=== PATIENT | female | born 1975 | race African-American/Black ===

== ENCOUNTER 2016-09-24 12:28 | Emergency (ER) | payer SELFPAY ==
[2016-09-24 12:35] VITALS: BP 131/91
--- NOTE | 2016-09-24 13:08 | ER Document Report ---
Addendum entered and electronically signed by CARMELITA KARIMI NP 09/24/16 13:19 : Course - Re-evaluation Re-evalutation: 09/24/16 13:19 pt wants to leave, pt signed form per pt access staff, pt declines speaking with any additional staff - Vital Signs Vital signs: Temp Pulse Resp BP Pulse Ox 98.2 F 100 14 131/91 H 97 09/24/16 12:35 09/24/16 12:35 09/24/16 12:35 09/24/16 12:35 09/24/16 12:35 Original Note: ED Medical Screen (RME) - General Stated Complaint: RIGHT LEG AND ARM PAIN Mode of Arrival: Ambulatory Information source: Patient Notes: Patient presents complaining of right upper extremity tenderness. Patient states she noticed a bruise to right upper arm and right thigh. Patient has a history of PE in the past and is worried about possible blood clots. Patient does have an IVC filter in place. Patient reports cough for the past few days that started to improve. hx: PE, hypertension, anxiety I have greeted and performed a rapid initial assessment of this patient. A comprehensive ED assessment and evaluation of the patient, analysis of test results and completion of the medical decision making process will be conducted by additional ED providers. TRAVEL OUTSIDE OF THE [place] IN LAST 30 DAYS: No - Related Data Allergies/Adverse Reactions: ciprofloxacin [From Cipro] Allergy (Mild, Verified 09/24/16 13:04) rash metoclopramide HCl [From Reglan] Allergy (Mild, Verified 09/24/16 13:04) Hives morphine [Morphine] Adverse Reaction (Mild, Verified 09/24/16 13:04) Hyperactivity prochlorperazine edisylate [From Compazine] Adverse Reaction (Mild, Verified 13:04) Past Medical History - Past Medical History Cardiac Medical History: Reports: Hx Hypertension, Hx Pulmonary Embolism Denies: Hx Coronary Artery Disease, Hx Heart Attack Pulmonary Medical History: Denies: Hx Asthma, Hx Bronchitis, Hx COPD, Hx Pneumonia Neurological Medical History: Reports: Hx Cerebrovascular Accident. Denies: Hx Seizures Renal/ Medical History: Reports: Hx Kidney Stones GI Medical History: Reports: Hx Gastroesophageal Reflux Disease Musculoskeltal Medical History: Denies Hx Arthritis Psychiatric Medical History: Reports: Hx Anxiety Past Surgical History: Reports: Hx Cardiac Surgery - stents, Hx Section , Hx Cholecystectomy, Hx Hysterectomy, Hx Thyroid Surgery - Immunizations Immunizations up to date: Yes Hx Diphtheria, Pertussis, Tetanus Vaccination: Yes Physical Exam - Vital signs Vitals: Temp Pulse Resp BP Pulse Ox 98.2 F 100 14 131/91 H 97 09/24/16 12:35 09/24/16 12:35 09/24/16 12:35 09/24/16 12:35 09/24/16 12:35 - Extremities General upper extremity: Tender - Right upper extremity with small ecchymotic area Course - Vital Signs Vital signs: Temp Pulse Resp BP Pulse Ox 98.2 F 100 14 131/91 H 97 09/24/16 12:35 09/24/16 12:35 09/24/16 12:35 09/24/16 12:35 09/24/16 12:35
== END 2016-09-24 13:18 | disposition left against medical advice (07) ==
LOC: ER 12:28
DX: S40.021A Contusion of right upper arm, initial encounter (principal); S70.11XA Contusion of right thigh, initial encounter; X58.XXXA Exposure to other specified factors, initial encounter; I10 Essential (primary) hypertension; Z88.1 Allergy status to other antibiotic agents; Z88.8 Allergy status to other drugs, medicaments and biological substances; Z86.718 Personal history of other venous thrombosis and embolism; Z86.73 Personal history of transient ischemic attack (TIA), and cerebral infarction without residual deficits; Z98.61 Coronary angioplasty status; Z53.20 Procedure and treatment not carried out because of patient's decision for unspecified reasons
CPT/HCPCS: 99281

== ENCOUNTER 2017-04-18 13:49 | Emergency (ER) | payer SELFPAY ==
[2017-04-18 13:57] VITALS: BP 127/89
[2017-04-18] MEDS ORDERED: IBUPROFEN 600 MG TABLET PO ONE (14:21)
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
--- NOTE | 2017-04-18 15:01 | RADIOLOGY REPORT (SQ) ---
EXAM DESCRIPTION: HAND LEFT 3 VIEWS COMPLETED DATE/TIME: 04/18/2017 2:37 pm REASON FOR STUDY: pain and swelling COMPARISON: None. EXAM PARAMETERS: NUMBER OF VIEWS: Three views. TECHNIQUE: AP, lateral and oblique radiographic images acquired of the left hand. LIMITATIONS: None. FINDINGS: MINERALIZATION: Normal. BONES: No acute fracture or dislocation. No worrisome bone lesions. JOINTS: No effusions. SOFT TISSUES: No soft tissue swelling. No foreign body. OTHER: No other significant finding. IMPRESSION: NEGATIVE STUDY OF THE LEFT HAND. NO RADIOGRAPHIC EVIDENCE OF ACUTE INJURY. TECHNICAL DOCUMENTATION: JOB ID: [id number] [employer]- All Rights Reserved
== END 2017-04-18 15:17 | disposition home or self-care (01) ==
LOC: ER 13:49
DX: S69.92XA Unspecified injury of left wrist, hand and finger(s), initial encounter (principal); M79.642 Pain in left hand; X58.XXXA Exposure to other specified factors, initial encounter
CPT/HCPCS: 99283

== ENCOUNTER 2019-06-14 14:21 | Emergency (ER) | payer SELFPAY ==
--- NOTE | 2019-06-14 14:41 | EKG REPORT ---
SEVERITY:- NORMAL ECG - SINUS RHYTHM : Confirmed by: Beatris Marina MD 14-Jun-2019 14:41:08
[2019-06-14] MEDS ORDERED: LORAZEPAM 1 MG TABLET PO ONE (15:00)
--- NOTE | 2019-06-14 15:04 | ER Document Report ---
ED Medical Screen (RME) - General Chief Complaint: Chest Pain Stated Complaint: CHEST PAIN Time Seen by Provider: 06/14/19 14:57 Primary Care Provider: CANDY GARCIA MD [Primary Care Provider] - Follow up as needed Mode of Arrival: Ambulatory Information source: Patient Notes: Patient is a 44-year-old female presents the emergency department chief complaint of 2-day history of chest pain. Patient does report history of anxiety. She states she has lost multiple family members in the last few months and has had a lot of anxiety about this. Patient reports the pain feels like a soreness in the center of her chest, it is nonradiating and has no associated symptoms such as nausea or shortness of breath. Exam: Heart sounds S1-S2 present with no ectopy noted. Patient appears very anxious and tearful. I have greeted and performed a rapid initial assessment of this patient. A comprehensive ED assessment and evaluation of the patient, analysis of test results and completion of the medical decision making process will be conducted by additional ED providers. I have specifically instructed the patient or family members with the patient to immediately return to any nursing staff should anything change in the patient's condition or with their chief complaint. This medical record was dictated with voice recognizing software. There may be grammatical, syntax errors that are unintended. TRAVEL OUTSIDE OF THE [place] IN LAST 30 DAYS: No - Related Data Allergies/Adverse Reactions: ciprofloxacin [From Cipro] Allergy (Mild, Verified 06/14/19 14:57) rash metoclopramide HCl [From Reglan] Allergy (Mild, Verified 06/14/19 14:57) Hives morphine [Morphine] Adverse Reaction (Mild, Verified 06/14/19 14:57) Hyperactivity prochlorperazine edisylate [From Compazine] Adverse Reaction (Mild, Verified 06/14/19 14:57) Home Medications: clonidine, lisinopril HCTZ, norvac Past Medical History - Social History Chew tobacco use (# tins/day): No Frequency of alcohol use: Occasional Drug Abuse: None - Past Medical History Cardiac Medical History: Reports: Hx Hypercholesterolemia, Hx Hypertension, Hx Pulmonary Embolism Denies: Hx Coronary Artery Disease, Hx Heart Attack Pulmonary Medical History: Denies: Hx Asthma, Hx Bronchitis, Hx COPD, Hx Pneumonia Neurological Medical History: Reports: Hx Cerebrovascular Accident. Denies: Hx Seizures Renal/ Medical History: Reports: Hx Kidney Stones. Denies: Hx Peritoneal Dialysis GI Medical History: Reports: Hx Gastroesophageal Reflux Disease Musculoskeltal Medical History: Denies Hx Arthritis, Reports Hx Musculoskeletal Deformity, Reports Hx Musculoskeletal Trauma Psychiatric Medical History: Reports: Hx Anxiety Past Surgical History: Reports: Hx Cardiac Surgery - stents, Hx Section, Hx Cholecystectomy, Hx Hysterectomy, Hx Thyroid Surgery, Hx Vascular Surgery - Filter to prevent clots to the lung, Other - Chest tube - Immunizations Immunizations up to date: Yes Hx Diphtheria, Pertussis, Tetanus Vaccination: Yes Physical Exam - Vital signs Vitals: Temp Pulse Resp BP Pulse Ox 98.8 F 85 18 163/90 H 99 06/14/19 14:26 06/14/19 14:26 06/14/19 14:26 06/14/19 14:26 06/14/19 14:26 Course - Vital Signs Vital signs: Temp Pulse Resp BP Pulse Ox 98.8 F 85 18 163/90 H 99 06/14/19 14:26 06/14/19 14:26 06/14/19 14:26 06/14/19 14:26 06/14/19 14:26 Doctor's Discharge - Discharge Referrals: CANDY GARCIA MD [Primary Care Provider] - Follow up as needed
--- NOTE | 2019-06-14 15:29 | RADIOLOGY REPORT (SQ) ---
EXAM DESCRIPTION: CHEST 2 VIEWS COMPLETED DATE/TIME: 06/14/2019 3:15 pm REASON FOR STUDY: CHEST PAIN COMPARISON: 10/06/2014 EXAM PARAMETERS: NUMBER OF VIEWS: two views TECHNIQUE: Digital Frontal and Lateral radiographic views of the chest acquired. RADIATION DOSE: NA LIMITATIONS: none FINDINGS: LUNGS AND PLEURA: No opacities, masses or pneumothorax. No pleural effusion. MEDIASTINUM AND HILAR STRUCTURES: No masses or contour abnormalities. HEART AND VASCULAR STRUCTURES: Heart normal size. No evidence for failure. BONES: No acute findings. HARDWARE: None in the chest. OTHER: No other significant finding. IMPRESSION: NO ACUTE RADIOGRAPHIC FINDING IN THE CHEST. TECHNICAL DOCUMENTATION: JOB ID: [id number] [employer]- All Rights Reserved Reading location - IP/workstation name: [email or web address]
[2019-06-14] MEDS ORDERED: ACETAMINOPHEN 325 MG TABLET PO ONE (16:16)
[2019-06-14 17:24] LABS: ABSOLUTE BASOPHILS # (AUTO) 0.1 10^3/uL (0.0-0.2); ABSOLUTE EOSINOPHILS # (AUTO) 0.3 10^3/uL (0.0-0.6); ABSOLUTE LYMPHOCYTES (AUTO) 2.9 10^3/uL (0.5-4.7); ABSOLUTE MONOCYTES (AUTO) 0.6 10^3/uL (0.1-1.4); ABSOLUTE NEUT (AUTO) 5.4 10^3/uL (1.7-8.2); BASOPHILS % (AUTO) 0.7 % (0-2); EOSINOPHILS % (AUTO) 2.7 % (0-6); HEMATOCRIT 38.9 % (36.0-47.0); HEMOGLOBIN 13.2 g/dL (12.0-15.5); LYMPHOCYTES % (AUTO) 31.5 % (13-45); MEAN CORPUSCULAR HEMOGLOBIN 32.9 pg (27.0-33.4); MEAN CORPUSCULAR VOLUME 97 fl (80-97); MONOCYTES % (AUTO) 6.6 % (3-13); RED BLOOD COUNT 4.02 10^6/uL (3.72-5.28); RED CELL DISTRIBUTION WIDTH 13.9 % (11.5-14.0); SEGMENTED NEUTROPHILS % (AUTO) 58.5 % (42-78); TOTAL CELLS COUNTED % (AUTO) 100 %; WHITE BLOOD COUNT 9.2 10^3/uL (4.0-10.5)
[2019-06-14 17:32] LABS: ALBUMIN 4.6 g/dL (3.5-5.0); ALKALINE PHOSPHATASE 62 U/L (38-126); ANION GAP 10 (5-19); ASPARTATE AMINO TRANSFERASE 27 U/L (14-36); BILIRUBIN,DIRECT 0.2 mg/dL (0.0-0.4); BILIRUBIN,TOTAL 0.5 mg/dL (0.2-1.3); BLOOD UREA NITROGEN 13 mg/dL (7-20); CALCIUM 10.5 mg/dL (8.4-10.2); CARBON DIOXIDE 28 mmol/L (22-30); CHLORIDE 102 mmol/L (98-107); GLUCOSE 95 mg/dL (75-110); POTASSIUM 4.1 mmol/L (3.6-5.0); TOTAL PROTEIN 9.2 g/dL (6.3-8.2)
[2019-06-14 17:51] LABS: PLATELET COUNT 273 10^3/uL (150-450)
[2019-06-14 18:08] VITALS: BP 175/120
[2019-06-14] MEDS ORDERED: HYDROCODONE/ACETAMINOPHEN 5-325 MG (6 TAB/ER DISP) PO PRN (18:19)
[2019-06-14] MEDS ORDERED: KETOROLAC TROMETHAMINE 60 MG/2 ML SDV IM ONE (18:19)
--- NOTE | 2019-06-14 18:21 | ER Document Report ---
HPI - HPI Time Seen by Provider: 06/14/19 14:57 Pain Level: 4 Notes: Patient is a 44-year-old female presents the emergency department chief complaint of 2-day history of chest pain. Patient does report history of anxiety. She states she has lost multiple family members in the last few months and has had a lot of anxiety about this. Patient reports the pain feels like a soreness in the center of her chest, it is nonradiating and has no associated symptoms such as nausea or shortness of breath. - REPRODUCTIVE Reproductive: DENIES: : Past Medical History - General Information source: Patient - Social History Smoking Status: Former Smoker Chew tobacco use (# tins/day): No Frequency of alcohol use: Occasional Drug Abuse: None Family History: CAD, Hypertension, Malignancy Patient has suicidal ideation: No Patient has homicidal ideation: No - Past Medical History Cardiac Medical History: Reports: Hx Hypercholesterolemia, Hx Hypertension, Hx Pulmonary Embolism Denies: Hx Coronary Artery Disease, Hx Heart Attack Pulmonary Medical History: Denies: Hx Asthma, Hx Bronchitis, Hx COPD, Hx Pneumonia Neurological Medical History: Reports: Hx Cerebrovascular Accident. Denies: Hx Seizures Renal/ Medical History: Reports: Hx Kidney Stones. Denies: Hx Peritoneal Dialysis GI Medical History: Reports: Hx Gastroesophageal Reflux Disease Musculoskeletal Medical History: Denies Hx Arthritis, Reports Hx Musculoskeletal Deformity, Reports Hx Musculoskeletal Trauma Psychiatric Medical History: Reports: Hx Anxiety Past Surgical History: Reports: Hx Cardiac Surgery - stents, Hx Section, Hx Cholecystectomy, Hx Hysterectomy, Hx Thyroid Surgery, Hx Vascular Surgery - Filter to prevent clots to the lung, Other - Chest tube - Immunizations Immunizations up to date: Yes Hx Diphtheria, Pertussis, Tetanus Vaccination: Yes Vertical Provider Document - CONSTITUTIONAL Notes: PHYSICAL EXAMINATION: GENERAL: Well-appearing, well-nourished and in no acute distress. HEAD: Atraumatic, normocephalic. EYES: Pupils equal round and reactive to light, extraocular movements intact, conjunctiva are normal. ENT: Nares patent, oropharynx clear without exudates. Moist mucous membranes. NECK: Normal range of motion, supple without lymphadenopathy LUNGS: Breath sounds clear to auscultation bilaterally and equal. No wheezes rales or rhonchi. HEART: Regular rate and rhythm without murmurs ABDOMEN: Soft, nontender, nondistended abdomen. No guarding, no rebound. No masses appreciated. Female : deferred Musculoskeletal: Normal range of motion, no pitting or edema. No cyanosis. Reproducible pain with palpation to the middle chest wall. NEUROLOGICAL: Cranial nerves grossly intact. Normal speech, normal gait. Normal sensory, motor exams PSYCH: Normal mood, normal affect. SKIN: Warm, Dry, normal turgor, no rashes or lesions noted. - INFECTION CONTROL TRAVEL OUTSIDE OF THE [place] IN LAST 30 DAYS: No Course - Re-evaluation Re-evalutation: EKG shows a sinus rhythm, rate of 83, QTc 442, no ST segment elevations or depressions to suggest ischemia. Patient's work-up today has been negative, troponin is normal. Patient has a heart score of 2. Patient's pain has been ongoing for 2 days. No indication at this time for repeat troponin. Patient does have a lot of stress going on, she states recent loss of multiple family members. Patient will be discharged home at this time. - Vital Signs Vital signs: Temp Pulse Resp BP Pulse Ox 98.8 F 84 18 175/120 H 100 06/14/19 14:26 06/14/19 18:07 06/14/19 14:26 06/14/19 18:07 06/14/19 18:07 - Laboratory Result Diagrams: 06/14/19 16:25 06/14/19 16:25 Laboratory results interpreted by me: 06/14/19 16:25 Calcium 10.5 H Total Protein 9.2 H Discharge - Discharge Clinical Impression: Anxiety Chest pain Qualifiers: Chest pain type: unspecified Qualified Code(s): R07.9 - Chest pain, unspecified Condition: Stable Disposition: HOME, SELF-CARE Additional Instructions: Your cardiac work-up in the emergency department today was normal. I write you a prescription for some muscle relaxers to see if this will help with your pain. I have also written you prescription for some medicine called hydroxyzine to try to help with your anxiety. Please follow-up with your primary care provider on as discussed. Return to the emergency department with any new or worsening symptoms. Prescriptions: Hydroxyzine HCl [Atarax 25 mg Tablet] 1 - 2 tab PO QID #25 tablet Cyclobenzaprine HCl [Flexeril 10 mg Tablet] 10 mg PO TIDP PRN #15 tab PRN Reason: Referrals: CANDY GARCIA MD [Primary Care Provider] - Follow up as needed
== END 2019-06-14 18:33 | disposition home or self-care (01) ==
LOC: ER 14:21
DX: R07.9 Chest pain, unspecified (principal); F41.9 Anxiety disorder, unspecified; R11.0 Nausea; R06.02 Shortness of breath; Z87.891 Personal history of nicotine dependence
CPT/HCPCS: 93005; 99285; 96372; 36415; 85025; 80053; 84484; 71046; 93010; J1885

== ENCOUNTER 2019-06-20 14:44 | Emergency (ER) | payer OTHER ==
[2019-06-20 14:51] VITALS: BP 132/98
[2019-06-20] MEDS ORDERED: KETOROLAC TROMETHAMINE 60 MG/2 ML SDV IM ONE (15:10)
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
== END 2019-06-20 15:43 | disposition home or self-care (01) ==
LOC: ER 14:44
DX: M79.652 Pain in left thigh (principal); Z79.899 Other long term (current) drug therapy; I10 Essential (primary) hypertension
CPT/HCPCS: 96374; 99283; J1885

== ENCOUNTER 2019-09-15 12:07 | Emergency (ER) | payer SELFPAY ==
[2019-09-15] MEDS ORDERED: IBUPROFEN 800 MG TABLET PO ONE (13:41)
[2019-09-15] MEDS ORDERED: HYDROXYZINE PAMOATE 25 MG CAPSULE PO ONE (13:41)
--- NOTE | 2019-09-15 13:43 | ER Document Report ---
ED Medical Screen (RME) - General Chief Complaint: Anxiety Stated Complaint: ANXIETY Time Seen by Provider: 09/15/19 13:36 Primary Care Provider: CANDY GARCIA MD [Primary Care Provider] - Follow up as needed Mode of Arrival: Ambulatory Information source: Patient Notes: 44-year-old female presents emergency department with complaints of chest pain coming and going. No chest pain now. Also complains of headache. Reports she is worried about her blood pressure. Patient reports grandchild a few months ago and it is anniversary of her 's so she is under a lot of stress. She reports she feels very anxious. Slightly emotional with tears. Denies fever vomiting diarrhea. I have greeted and performed a rapid initial assessment of this patient. A comprehensive ED assessment and evaluation of the patient, analysis of test results and completion of the medical decision making process will be conducted by additional ED providers. TRAVEL OUTSIDE OF THE [place] IN LAST 30 DAYS: No - Related Data Allergies/Adverse Reactions: ciprofloxacin [From Cipro] Allergy (Mild, Verified 06/14/19 14:57) rash metoclopramide HCl [From Reglan] Allergy (Mild, Verified 06/14/19 14:57) Hives morphine [Morphine] Adverse Reaction (Mild, Verified 06/14/19 14:57) Hyperactivity prochlorperazine edisylate [From Compazine] Adverse Reaction (Mild, Verified 06/14/19 14:57) Past Medical History - Social History Chew tobacco use (# tins/day): No - Past Medical History Cardiac Medical History: Reports: Hx Hypercholesterolemia, Hx Hypertension, Hx Pulmonary Embolism Denies: Hx Coronary Artery Disease, Hx Heart Attack Pulmonary Medical History: Denies: Hx Asthma, Hx Bronchitis, Hx COPD, Hx Pneumonia Neurological Medical History: Reports: Hx Cerebrovascular Accident. Denies: Hx Seizures Renal/ Medical History: Reports: Hx Kidney Stones. Denies: Hx Peritoneal Dialysis GI Medical History: Reports: Hx Gastroesophageal Reflux Disease Musculoskeltal Medical History: Denies Hx Arthritis, Reports Hx Musculoskeletal Deformity, Reports Hx Musculoskeletal Trauma Psychiatric Medical History: Reports: Hx Anxiety Past Surgical History: Reports: Hx Cardiac Surgery - stents, Hx Sect ion, Hx Cholecystectomy, Hx Hysterectomy, Hx Thyroid Surgery, Hx Vascular Surgery - Filter to prevent clots to the lung, Other - Chest tube - Immunizations Immunizations up to date: Yes Hx Diphtheria, Pertussis, Tetanus Vaccination: Yes Physical Exam - Vital signs Vitals: Temp Pulse Resp BP Pulse Ox 98.8 F 82 20 146/96 H 99 09/15/19 12:23 09/15/19 12:23 09/15/19 12:23 09/15/19 12:23 09/15/19 12:23 Course - Vital Signs Vital signs: Temp Pulse Resp BP Pulse Ox 98.8 F 82 20 146/96 H 99 09/15/19 12:23 09/15/19 12:23 09/15/19 12:23 09/15/19 12:23 09/15/19 12:23 Doctor's Discharge - Discharge Referrals: CANDY GARCIA MD [Primary Care Provider] - Follow up as needed
--- NOTE | 2019-09-15 14:02 | RADIOLOGY REPORT (SQ) ---
EXAM DESCRIPTION: CHEST 2 VIEWS COMPLETED DATE/TIME: 09/15/2019 1:51 pm REASON FOR STUDY: cp COMPARISON: 06/14/2019 EXAM PARAMETERS: NUMBER OF VIEWS: two views TECHNIQUE: Digital Frontal and Lateral radiographic views of the chest acquired. RADIATION DOSE: NA LIMITATIONS: none FINDINGS: LUNGS AND PLEURA: No opacities, masses or pneumothorax. No pleural effusion. MEDIASTINUM AND HILAR STRUCTURES: No masses or contour abnormalities. HEART AND VASCULAR STRUCTURES: Heart normal size. No evidence for failure. BONES: No acute findings. HARDWARE: None in the chest. OTHER: No other significant finding. IMPRESSION: NO ACUTE RADIOGRAPHIC FINDING IN THE CHEST. TECHNICAL DOCUMENTATION: JOB ID: [id number] 2010 [employer]- All Rights Reserved Reading location - IP/workstation name: [email or web address]
[2019-09-15] MEDS ORDERED: ACETAMINOPHEN 325 MG TABLET PO ONE (15:44)
[2019-09-15] MEDS ORDERED: HYDROCHLOROTHIAZIDE 25 MG TABLET PO ONE (15:47)
[2019-09-15] MEDS ORDERED: LISINOPRIL 10 MG TABLET PO ONE (15:47)
--- NOTE | 2019-09-15 15:51 | ER Document Report ---
ED General - General Chief Complaint: Anxiety Stated Complaint: ANXIETY Time Seen by Provider: 09/15/19 13:36 Primary Care Provider: EFREM CODY MD [ACTIVE STAFF] - Follow up in 3-5 days CANDY GARCIA MD [Primary Care Provider] - Follow up in 3-5 days Mode of Arrival: Ambulatory Notes: 44-year-old female with history of hypertension and PE with filter presents for chest pain that is been intermittent for the past few days. Patient states she thinks it is related to anxiety. Patient states the 1 year anniversary of her 's passing is coming up and she just lost her grandchild 4 months ago. Patient states the chest pain became worse today. No radiation. No associated dyspnea, nausea/vomiting, dizziness. Patient does states she has a headache today. States she ran out of her blood pressure medicine yesterday. TRAVEL OUTSIDE OF THE [place] IN LAST 30 DAYS: No - Related Data Allergies/Adverse Reactions: ciprofloxacin [From Cipro] Allergy (Mild, Verified 06/14/19 14:57) rash metoclopramide HCl [From Reglan] Allergy (Mild, Verified 06/14/19 14:57) Hives morphine [Morphine] Adverse Reaction (Mild, Verified 06/14/19 14:57) Hyperactivity prochlorperazine edisylate [From Compazine] Adverse Reaction (Mild, Verified 06/14/19 14:57) Past Medical History - General Information source: Patient - Social History Smoking Status: Unknown if Ever Smoked Chew tobacco use (# tins/day): No Family History: CAD, Hypertension, Malignancy Patient has suicidal ideation: No Patient has homicidal ideation: No - Past Medical History Cardiac Medical History: Reports: Hx Hypercholesterolemia, Hx Hypertension, Hx Pulmonary Embolism Denies: Hx Coronary Artery Disease, Hx Heart Attack Pulmonary Medical History: Denies: Hx Asthma, Hx Bronchitis, Hx COPD, Hx Pneumonia Neurological Medical History: Reports: Hx Cerebrovascular Accident. Denies: Hx Seizures Renal/ Medical History: Reports: Hx Kidney Stones. Denies: Hx Peritoneal Dialysis GI Medical History: Reports: Hx Gastroesophageal Reflux Disease Musculoskeletal Medical History: Denies Hx Arthritis, Reports Hx Musculoskeletal Deformity, Reports Hx Musculoskeletal Trauma Psychiatric Medical History: Reports: Hx Anxiety Past Surgical History: Reports: Hx Cardiac Surgery - stents, Hx Section, Hx Cholecystectomy, Hx Hysterectomy, Hx Thyroid Surgery, Hx Vascular Surgery - Filter to prevent clots to the lung, Other - Chest tube - Immunizations Immunizations up to date: Yes Hx Diphtheria, Pertussis, Tetanus Vaccination: Yes Review of Systems - Review of Systems Notes: Constitutional: Negative for fever. HENT: Negative for sore throat. Eyes: Negative for visual changes. Cardiovascular: Positive for chest pain. Respiratory: Negative for shortness of breath. Gastrointestinal: Negative for abdominal pain, vomiting or diarrhea. Genitourinary: Negative for dysuria. Musculoskeletal: Negative for back pain. Skin: Negative for rash. Neurological: Positive for headaches. Negative for weakness or numbness. 10 point ROS negative except as marked above and in HPI. Physical Exam - Vital signs Vitals: Temp Pulse Resp BP Pulse Ox 98.8 F 82 20 146/96 H 99 09/15/19 12:23 09/15/19 12:23 09/15/19 12:23 09/15/19 12:23 09/15/19 12:23 - Notes Notes: GENERAL: Well-appearing, well-nourished and in no acute distress. HEAD: Atraumatic, normocephalic. EYES: Extraocular movements intact, sclera anicteric, conjunctiva are normal. NECK: Normal range of motion, supple without lymphadenopathy or JVD. LUNGS: Breath sounds clear to auscultation bilaterally and equal. No wheezes rales or rhonchi. HEART: Regular rate and rhythm without murmurs, rubs or gallops. EXTREMITIES: Normal range of motion, no pitting or edema. No clubbing or cyanosis. NEUROLOGICAL: Cranial nerves II through XII grossly intact. Normal speech, normal gait. PSYCH: Normal mood, normal affect. SKIN: Warm, Dry, normal turgor, no rashes or lesions noted. Course - Re-evaluation Re-evalutation: 09/15/19 15:49 nontoxic, well-appearing 44-year-old female presents with chest pain that she thinks may be due to anxiety. Patient has been under a lot of stressors lately. Patient states she has a distant history of PE that she had a filter placed for. Patient also has a history of hypertension and states she ran out of her blood pressure medicine yesterday. Patient offered to be seen by psych team however declines at this time and is asking for outpatient resources instead. Cardiac work-up initiated. D-dimer was also added on. 09/15/19 17:43 Trop negative. D dimer negative. Discussed all results with pt and need for 3-hour troponin. Pt states her head is still hurting despite ibuprofen and Tylenol. Toradol and Fioricet was ordered. Pt is frustrated with still being here in ER. Discussed plan of care and pt states she will try the Fioricet. 09/15/19 19:13 RN states unable to draw 2nd trop so another RN is attempting. Pt states still continued headache. 09/15/19 20:23 Discussed all results with pt. Pt given close follow up with PCP and dietitian teacher. Strict return precautions. Pt given refill of blood pressure medication. Pt voices understanding and agrees with plan of care. - Vital Signs Vital signs: Temp Pulse Resp BP Pulse Ox 98.0 F 78 20 146/96 H 99 09/15/19 17:43 09/15/19 17:43 09/15/19 17:43 09/15/19 12:23 09/15/19 17:43 - Laboratory Result Diagrams: 09/15/19 15:40 09/15/19 15:40 Laboratory results interpreted by me: 09/15/19 09/15/19 15:40 15:40 Hct 35.3 L Total Protein 8.3 H Discharge - Discharge Clinical Impression: Anxiety Chest pain Qualifiers: Chest pain type: unspecified Qualified Code(s): R07.9 - Chest pain, unspecified Condition: Stable Disposition: HOME, SELF-CARE Instructions: Anxiety ([facility]), Chest Pain of Unclear Cause ([facility]) Additional Instructions: Your workup today was reassuring, including two sets of cardiac enzymes which were negative. Please take medication as needed for anxiety. Please follow up with your primary care doctor in 3-5 days. Please follow up with dietitian teacher listed in 1-2 weeks. Please return to emergency department immediately if you rogers ve worsening of your chest pain, shortness of breath, vomiting, become unable to exert yourself due to pain or difficulty breathing, you pass out, or have any pain that radiates into your arms, jaw, or back. Please also return if you have any additional symptoms that are concerning to you. Prescriptions: Hydroxyzine HCl [Atarax 10 mg Tablet] 10 mg PO TID PRN #30 tablet PRN Reason: Lisinopril/Hydrochlorothiazide [Lisinopril-Hctz 20-12.5 mg Tab] 1 each PO DAILY #30 tablet Forms: Return to Work Referrals: CANDY GARCIA MD [Primary Care Provider] - Follow up in 3-5 days EFREM CODY MD [ACTIVE STAFF] - Follow up in 3-5 days
[2019-09-15 16:18] LABS: ABSOLUTE BASOPHILS # (AUTO) 0.1 10^3/uL (0.0-0.2); ABSOLUTE EOSINOPHILS # (AUTO) 0.2 10^3/uL (0.0-0.6); ABSOLUTE LYMPHOCYTES (AUTO) 1.7 10^3/uL (0.5-4.7); ABSOLUTE MONOCYTES (AUTO) 0.5 10^3/uL (0.1-1.4); ABSOLUTE NEUT (AUTO) 3.6 10^3/uL (1.7-8.2); BASOPHILS % (AUTO) 0.8 % (0-2); EOSINOPHILS % (AUTO) 3.1 % (0-6); HEMATOCRIT 35.3 % (36.0-47.0); HEMOGLOBIN 12.1 g/dL (12.0-15.5); LYMPHOCYTES % (AUTO) 28.6 % (13-45); MEAN CORPUSCULAR HEMOGLOBIN 32.4 pg (27.0-33.4); MEAN CORPUSCULAR HGB CONC 34.4 g/dL (32.0-36.0); MEAN CORPUSCULAR VOLUME 94 fl (80-97); MONOCYTES % (AUTO) 7.5 % (3-13); PLATELET COUNT 259 10^3/uL (150-450); RED BLOOD COUNT 3.75 10^6/uL (3.72-5.28); RED CELL DISTRIBUTION WIDTH 13.4 % (11.5-14.0); TOTAL CELLS COUNTED % (AUTO) 100 %; WHITE BLOOD COUNT 6.1 10^3/uL (4.0-10.5)
[2019-09-15 16:38] LABS: ALBUMIN 4.2 g/dL (3.5-5.0); ALKALINE PHOSPHATASE 67 U/L (38-126); ANION GAP 11 (5-19); ASPARTATE AMINO TRANSFERASE 23 U/L (14-36); BILIRUBIN,DIRECT 0.3 mg/dL (0.0-0.4); BILIRUBIN,TOTAL 0.4 mg/dL (0.2-1.3); BLOOD UREA NITROGEN 11 mg/dL (7-20); CALCIUM 9.8 mg/dL (8.4-10.2); CARBON DIOXIDE 26 mmol/L (22-30); CHLORIDE 103 mmol/L (98-107); GLUCOSE 86 mg/dL (75-110); POTASSIUM 3.9 mmol/L (3.6-5.0); TOTAL PROTEIN 8.3 g/dL (6.3-8.2)
[2019-09-15] MEDS ORDERED: KETOROLAC TROMETHAMINE 60 MG/2 ML SDV IM ONE (17:16)
[2019-09-15] MEDS ORDERED: BUTALB/ACETAMINOPHEN/CAFFEINE 1 TAB EACH PO ONE (17:43)
[2019-09-15] MEDS ORDERED: HYDROXYZINE PAMOATE 50 MG CAPSULE PO ONE (19:14)
--- NOTE | 2019-09-15 20:14 | EKG REPORT ---
SEVERITY:- NORMAL ECG - SINUS RHYTHM : Confirmed by: Reyes Dickson MD 15-Sep-2019 20:13:28
[2019-09-15 20:34] VITALS: BP 151/103
== END 2019-09-15 20:34 | disposition home or self-care (01) ==
LOC: ER 12:07
DX: F41.9 Anxiety disorder, unspecified (principal); R07.9 Chest pain, unspecified; E78.00 Pure hypercholesterolemia, unspecified; I10 Essential (primary) hypertension; Z88.3 Allergy status to other anti-infective agents; Z86.711 Personal history of pulmonary embolism; Z90.49 Acquired absence of other specified parts of digestive tract; Z90.710 Acquired absence of both cervix and uterus
CPT/HCPCS: 93005; 36415; 85025; 80053; 84484; 85379; 71046; 93010; J3490; J1885

== ENCOUNTER 2020-07-17 18:17 | Emergency (ER) | payer SELFPAY ==
--- NOTE | 2020-07-17 19:12 | EKG REPORT ---
SEVERITY:- NORMAL ECG - SINUS RHYTHM : Confirmed by: Beatris Marina MD 17-Jul-2020 19:11:26
--- NOTE | 2020-07-17 19:13 | ER Document Report ---
ED Medical Screen (RME) - General Chief Complaint: Chest Pain Stated Complaint: CHEST PAIN Time Seen by Provider: 07/17/20 19:07 Primary Care Provider: CANDY GARCIA MD [Primary Care Provider] - Follow up as needed TRAVEL OUTSIDE OF THE [place] IN LAST 30 DAYS: No - HPI Notes: Patient is a 45 y/o female with a hx of CVA, PE with IVC filter, HTN and anxiety who presents with chest pain that began this morning. She describes the pain as substernal and sharp. She states it awoke her from her sleep. She reports this feels similar to her anxiety but is much worse. She reports lots of stress in her life as she lost her a year ago and lost her aunt one month ago. She reports shortness of breath but denies abdominal pain, vomiting and fever. - Related Data Allergies/Adverse Reactions: ciprofloxacin [From Cipro] Allergy (Mild, Verified 06/14/19 14:57) rash metoclopramide HCl [From Reglan] Allergy (Mild, Verified 06/14/19 14:57) Hives morphine [Morphine] Adverse Reaction (Mild, Verified 06/14/19 14:57) Hyperactivity prochlorperazine edisylate [From Compazine] Adverse Reaction (Mild, Verified 06/14/19 14:57) Past Medical History - Past Medical History Cardiac Medical History: Reports: Hx Hypercholesterolemia, Hx Hypertension, Hx Pulmonary Embolism Denies: Hx Coronary Artery Disease, Hx Heart Attack Pulmonary Medical History: Denies: Hx Asthma, Hx Bronchitis, Hx COPD, Hx Pneumonia Neurological Medical History: Reports: Hx Cerebrovascular Accident. Denies: Hx Seizures Renal/ Medical History: Reports: Hx Kidney Stones. Denies: Hx Peritoneal Dialysis GI Medical History: Reports: Hx Gastroesophageal Reflux Disease Musculoskeltal Medical History: Denies Hx Arthritis, Reports Hx Musculoskeletal Deformity, Reports Hx Musculoskeletal Trauma Psychiatric Medical History: Reports: Hx Anxiety Past Surgical History: Reports: Hx Cardiac Surgery - stents, Hx Section, Hx Cholecystectomy, Hx Hysterectomy, Hx Thyroid Surgery, Hx Vascular Surgery - Filter to prevent clots to the lung, Other - Chest tube - Immunizations Immunizations up to date: Yes Hx Diphtheria, Pertussis, Tetanus Vaccination: Yes Physical Exam - Vital signs Vitals: Temp Pulse Resp BP Pulse Ox 98.3 F 94 20 122/85 94 07/17/20 18:25 12/14/20 18:25 07/17/20 18:25 07/17/20 18:25 07/17/20 18:25 Interpretation: Normal - Respiratory Respiratory status: No respiratory distress Breath sounds: Normal - Cardiovascular Rhythm: Regular Heart sounds: Normal auscultation Course - Re-evaluation Re-evalutation: I have greeted and performed a rapid initial assessment of this patient. A comprehensive ED assessment and evaluation of the patient, analysis of test results and completion of medical decision making process will be conducted by an additional ED providers. - Vital Signs Vital signs: Temp Pulse Resp BP Pulse Ox 98.3 F 94 20 122/85 94 07/17/20 18:25 07/17/20 18:25 07/17/20 18:25 07/17/20 18:25 07/17/20 18:25 Doctor's Discharge - Discharge Referrals: CANDY GARCIA MD [Primary Care Provider] - Follow up as needed
--- NOTE | 2020-07-17 19:19 | ER Document Report ---
ED Medical Screen (RME) - General Chief Complaint: Chest Pain Stated Complaint: CHEST PAIN Time Seen by Provider: 07/17/20 19:07 Primary Care Provider: CANDY GARCIA MD [Primary Care Provider] - Follow up as needed TRAVEL OUTSIDE OF THE [place] IN LAST 30 DAYS: No - Related Data Allergies/Adverse Reactions: ciprofloxacin [From Cipro] Allergy (Mild, Verified 06/14/19 14:57) rash metoclopramide HCl [From Reglan] Allergy (Mild, Verified 06/14/19 14:57) Hives morphine [Morphine] Adverse Reaction (Mild, Verified 06/14/19 14:57) Hyperactivity prochlorperazine edisylate [From Compazine] Adverse Reaction (Mild, Verified 06/14/19 14:57) Past Medical History - Past Medical History Cardiac Medical History: Reports: Hx Hypercholesterolemia, Hx Hypertension, Hx Pulmonary Embolism Denies: Hx Coronary Artery Disease, Hx Heart Attack Pulmonary Medical History: Denies: Hx Asthma, Hx Bronchitis, Hx COPD, Hx Pneumonia Neurological Medical History: Reports: Hx Cerebrovascular Accident. Denies: Hx Seizures Renal/ Medical History: Reports: Hx Kidney Stones. Denies: Hx Peritoneal Dialysis GI Medical History: Reports: Hx Gastroesophageal Reflux Disease Musculoskeltal Medical History: Denies Hx Arthritis, Reports Hx Musculoskeletal Deformity, Reports Hx Musculoskeletal Trauma Psychiatric Medical History: Reports: Hx Anxiety Past Surgical History: Reports: Hx Cardiac Surgery - stents, Hx Section, Hx Cholecystectomy, Hx Hysterectomy, Hx Thyroid Surgery, Hx Vascular Surgery - Filter to prevent clots to the lung, Other - Chest tube - Immunizations Immunizations up to date: Yes Hx Diphtheria, Pertussis, Tetanus Vaccination: Yes Physical Exam - Vital signs Vitals: Temp Pulse Resp BP Pulse Ox 98.3 F 94 20 122/85 94 07/17/20 18:25 07/17/20 18:25 07/17/20 18:25 07/17/20 18:25 07/17/20 18:25 Course - Vital Signs Vital signs: Temp Pulse Resp BP Pulse Ox 98.3 F 94 20 122/85 94 07/17/20 18:25 07/17/20 18:25 07/17/20 18:25 07/17/20 18:25 07/17/20 18:25 Doctor's Discharge - Discharge Referrals: CANDY GARCIA MD [Primary Care Provider] - Follow up as needed
--- NOTE | 2020-07-17 19:50 | RADIOLOGY REPORT (SQ) ---
EXAM DESCRIPTION: CHEST SINGLE VIEW IMAGES COMPLETED DATE/TIME: 07/17/2020 7:39 pm REASON FOR STUDY: chest pain COMPARISON: 09/15/2019 EXAM PARAMETERS: NUMBER OF VIEWS: One view. TECHNIQUE: Single frontal radiographic view of the chest acquired. RADIATION DOSE: NA LIMITATIONS: None. FINDINGS: LUNGS AND PLEURA: No opacities, masses or pneumothorax. No pleural effusion. MEDIASTINUM AND HILAR STRUCTURES: No masses. Contour normal. HEART AND VASCULAR STRUCTURES: Heart normal in size. Normal vasculature. BONES: No acute findings. HARDWARE: None in the chest. OTHER: No other significant finding. IMPRESSION: NO ACUTE RADIOGRAPHIC FINDING IN THE CHEST. TECHNICAL DOCUMENTATION: JOB ID: [id number] 2010 [employer]- All Rights Reserved Reading location - IP/workstation name: [email or web address]
[2020-07-17 23:47] LABS: ABSOLUTE BASOPHILS # (AUTO) 0.1 10^3/uL (0.0-0.2); ABSOLUTE EOSINOPHILS # (AUTO) 0.2 10^3/uL (0.0-0.6); ABSOLUTE LYMPHOCYTES (AUTO) 2.1 10^3/uL (0.5-4.7); ABSOLUTE MONOCYTES (AUTO) 0.5 10^3/uL (0.1-1.4); ABSOLUTE NEUT (AUTO) 3.9 10^3/uL (1.7-8.2); BASOPHILS % (AUTO) 1.2 % (0-2); EOSINOPHILS % (AUTO) 2.9 % (0-6); HEMATOCRIT 35.5 % (36.0-47.0); HEMOGLOBIN 11.7 g/dL (12.0-15.5); LYMPHOCYTES % (AUTO) 30.7 % (13-45); MEAN CORPUSCULAR HEMOGLOBIN 31.2 pg (27.0-33.4); MEAN CORPUSCULAR HGB CONC 32.9 g/dL (32.0-36.0); MEAN CORPUSCULAR VOLUME 95 fl (80-97); PLATELET COUNT 247 10^3/uL (150-450); RED BLOOD COUNT 3.74 10^6/uL (3.72-5.28); RED CELL DISTRIBUTION WIDTH 13.1 % (11.5-14.0); SEGMENTED NEUTROPHILS % (AUTO) 57.2 % (42-78); TOTAL CELLS COUNTED % (AUTO) 100 %; WHITE BLOOD COUNT 6.8 10^3/uL (4.0-10.5)
[2020-07-18 00:01] VITALS: BP 140/100
[2020-07-18 00:04] LABS: ALBUMIN 4.2 g/dL (3.5-5.0); ALKALINE PHOSPHATASE 72 U/L (38-126); ANION GAP 6 (5-19); ASPARTATE AMINO TRANSFERASE 33 U/L (14-36); BILIRUBIN,DIRECT 0.2 mg/dL (0.0-0.4); BILIRUBIN,TOTAL 0.7 mg/dL (0.2-1.3); BLOOD UREA NITROGEN 15 mg/dL (7-20); CALCIUM 9.7 mg/dL (8.4-10.2); CARBON DIOXIDE 28 mmol/L (22-30); CHLORIDE 104 mmol/L (98-107); GLUCOSE 98 mg/dL (75-110); POTASSIUM 3.7 mmol/L (3.6-5.0); TOTAL PROTEIN 8.3 g/dL (6.3-8.2)
[2020-07-18] MEDS ORDERED: KETOROLAC TROMETHAMINE INJ/PF 30 MG/1 ML SDV ONE (01:35)
[2020-07-18] MEDS ORDERED: BUSPIRONE HCL 10 MG TABLET ONE (01:38)
[2020-07-18] MEDS ORDERED: LORAZEPAM INJ 2 MG/1 ML VIAL ONE (01:40)
[2020-07-18] MEDS ORDERED: ACETAMINOPHEN 1,000 MG/100 ML RTUPB IV ONE (03:04)
[2020-07-18] MEDS ORDERED: ONDANSETRON ODT 4 MG TAB (6 TAB/ER DISP) ONE (04:20)
--- NOTE | 2020-07-18 22:56 | ER Document Report ---
ED Cardiac - General Chief Complaint: Chest Pain Stated Complaint: CHEST PAIN Time Seen by Provider: 07/17/20 19:07 Primary Care Provider: CANDY GARCIA MD [Primary Care Provider] - Follow up as needed Mode of Arrival: Ambulatory Information source: Patient Notes: Patient is a 45 y/o female with a hx of CVA, PE with IVC filter, HTN and anxiety who presents with chest pain that began this morning. She describes the pain as substernal and sharp. She states it awoke her from her sleep. She reports this feels similar to her anxiety but is much worse. She reports lots of stress in her life as she lost her a year ago and lost her aunt one month ago. She reports shortness of breath but denies abdominal pain, vomiting and fever. TRAVEL OUTSIDE OF THE [place] IN LAST 30 DAYS: No - Related Data Allergies/Adverse Reactions: ciprofloxacin [From Cipro] Allergy (Mild, Verified 06/14/19 14:57) rash metoclopramide HCl [From Reglan] Allergy (Mild, Verified 06/14/19 14:57) Hives morphine [Morphine] Adverse Reaction (Mild, Verified 06/14/19 14:57) Hyperactivity prochlorperazine edisylate [From Compazine] Adverse Reaction (Mild, Verified 06/14/19 14:57) Past Medical History - General Information source: Patient - Social History Smoking Status: Current Some Day Smoker Frequency of alcohol use: Occasional Drug Abuse: None Family History: CAD, Hypertension, Malignancy - Past Medical History Cardiac Medical History: Reports: Hx Hypercholesterolemia, Hx Hypertension, Hx Pulmonary Embolism Neurological Medical History: Reports: Hx Cerebrovascular Accident Renal/ Medical History: Reports: Hx Kidney Stones GI Medical History: Reports: Hx Gastroesophageal Reflux Disease Musculoskeletal Medical History: Reports Hx Musculoskeletal Deformity, Reports Hx Musculoskeletal Trauma Psychiatric Medical History: Reports: Hx Anxiety Past Surgical History: Reports: Hx Cardiac Surgery - stents, Hx Section, Hx Cholecystectomy, Hx Hysterectomy, Hx Thyroid Surgery, Hx Vascular Surgery - Filter to prevent clots to the lung, Other - Chest tube - Immunizations Immunizations up to date: Yes Hx Diphtheria, Pertussis, Tetanus Vaccination: Yes Review of Systems - Review of Systems -: Yes All other systems reviewed and negative - See HPI Physical Exam - Vital signs Vitals: Temp Pulse Resp BP Pulse Ox 98.3 F 94 20 122/85 94 07/17/20 18:25 07/17/20 18:25 07/17/20 18:25 07/17/20 18:25 07/17/20 18:25 - Notes Notes: PHYSICAL EXAMINATION: GENERAL: Well-appearing, well-nourished and in no acute distress. HEAD: Atraumatic, normocephalic. EYES: Pupils equal round and reactive to light, extraocular movements intact, conjunctiva are normal. ENT: Nares patent, oropharynx clear without exudates. Moist mucous membranes. NECK: Normal range of motion, supple without lymphadenopathy LUNGS: Breath sounds clear to auscultation bilaterally and equal. No wheezes rales or rhonchi. HEART: Regular rate and rhythm without murmurs ABDOMEN: Soft, nontender, nondistended abdomen. No guarding, no rebound. No masses appreciated. Female : deferred Musculoskeletal: Normal range of motion, no pitting or edema. No cyanosis. NEUROLOGICAL: Cranial nerves grossly intact. Normal speech, normal gait. Normal sensory, motor exams PSYCH: Normal mood, normal affect. SKIN: Warm, Dry, normal turgor, no rashes or lesions noted. Course - Re-evaluation Re-evalutation: Patient presenting to the emergency department concern about chest pain. Patient reports she thinks it is anxiety. She states that she has high anxiety due to multiple losses. She states she lost her of 28 years about 2 years ago and she lost her aunt about a month ago. She has had chest pain for 4 days, she states it woke her up from her sleep initially. She reports associated nausea with a lack of appetite. She reports that she wants to be started on depression and anxiety medicines. She sees Dr. Garcia. She denies any suicidal or homicidal ideations. Patient was given medications in the emergency department to include Ativan. She reports her anxiety and chest pain have resolved. She does report all of her body aches, she is concerned she may have Covid. She was swabbed for Covid. She was asking for pain medications. She was given a dose of IV Toradol here in the emergency department. She states that she needs something "much stronger". She was given a dose of IV acetaminophen. I have no indication to give this patient IV narcotics. Patient is not happy that we will not give her any IV narcotics. Her cardiac work-up today was negative. Covid pending. Patient will be discharged at this time. This patient was seen during computer downtime, please see handwritten discharge instructions. - Vital Signs Vital signs: Temp Pulse Resp BP Pulse Ox 98.3 F 94 17 140/100 H 94 07/17/20 18:25 07/17/20 18:25 07/17/20 23:34 07/17/20 23:34 07/17/20 18:25 - Laboratory Results Result Diagrams: 07/17/20 23:35 07/17/20 23:35 Laboratory Results Interpreted: 07/17/20 07/17/20 23:35 23:35 Hgb 11.7 L Hct 35.5 L Total Protein 8.3 H Critical Laboratory Results Reviewed: No Critical Results - Radiology Results Critical Radiology Results Reviewed: No Critical Results - EKG Interpretation by Nd EKG shows normal: Sinus rhythm - Rate 88, normal axis, normal intervals, no change from previous EKG on file, no ST segment elevations or depressions Discharge - Discharge Clinical Impression: Anxiety Chest pain Qualifiers: Chest pain type: unspecified Qualified Code(s): R07.9 - Chest pain, unspecified Depression Qualifiers: Depression Type: unspecified Qualified Code(s): F32.9 - Major depressive disorder, single episode, unspecified Condition: Good Disposition: HOME, SELF-CARE Referrals: CANDY GARCIA MD [Primary Care Provider] - Follow up as needed
== END 2020-07-18 06:32 | disposition home or self-care (01) ==
LOC: ER 18:17
DX: F41.9 Anxiety disorder, unspecified (principal); R07.2 Precordial pain; F32.9 Major depressive disorder, single episode, unspecified; R06.02 Shortness of breath; R11.0 Nausea; R63.0 Anorexia; F17.200 Nicotine dependence, unspecified, uncomplicated; Z86.711 Personal history of pulmonary embolism; Z63.4 Disappearance and death of family member; Z88.1 Allergy status to other antibiotic agents; Z88.8 Allergy status to other drugs, medicaments and biological substances; Z95.5 Presence of coronary angioplasty implant and graft; Z82.49 Family history of ischemic heart disease and other diseases of the circulatory system; Z20.828 Contact with and (suspected) exposure to other viral communicable diseases
CPT/HCPCS: 93005; 99285; 36415; 85025; 87635; 80053; 84484; 71045; 93010; C9803

== ENCOUNTER 2020-07-25 10:18 | Emergency (ER) | payer SELFPAY ==
[2020-07-25] MEDS ORDERED: HYDROCODONE/ACETAMINOPHEN 5-325 MG TABLET PO ONE (12:12)
[2020-07-25 12:27] LABS: ABSOLUTE BASOPHILS # (AUTO) 0.1 10^3/uL (0.0-0.2); ABSOLUTE EOSINOPHILS # (AUTO) 0.1 10^3/uL (0.0-0.6); ABSOLUTE LYMPHOCYTES (AUTO) 1.5 10^3/uL (0.5-4.7); ABSOLUTE MONOCYTES (AUTO) 0.4 10^3/uL (0.1-1.4); ABSOLUTE NEUT (AUTO) 3.7 10^3/uL (1.7-8.2); BASOPHILS % (AUTO) 0.9 % (0-2); EOSINOPHILS % (AUTO) 1.7 % (0-6); HEMATOCRIT 35.5 % (36.0-47.0); LYMPHOCYTES % (AUTO) 26.5 % (13-45); MEAN CORPUSCULAR HEMOGLOBIN 31.9 pg (27.0-33.4); MEAN CORPUSCULAR HGB CONC 33.7 g/dL (32.0-36.0); MEAN CORPUSCULAR VOLUME 95 fl (80-97); MONOCYTES % (AUTO) 7.4 % (3-13); PLATELET COUNT 309 10^3/uL (150-450); RED BLOOD COUNT 3.75 10^6/uL (3.72-5.28); SEGMENTED NEUTROPHILS % (AUTO) 63.5 % (42-78); TOTAL CELLS COUNTED % (AUTO) 100 %; WHITE BLOOD COUNT 5.8 10^3/uL (4.0-10.5)
[2020-07-25 12:43] LABS: ALBUMIN 4.5 g/dL (3.5-5.0); ALKALINE PHOSPHATASE 73 U/L (38-126); ANION GAP 7 (5-19); ASPARTATE AMINO TRANSFERASE 24 U/L (14-36); BILIRUBIN,DIRECT 0.1 mg/dL (0.0-0.4); BILIRUBIN,TOTAL 0.3 mg/dL (0.2-1.3); BLOOD UREA NITROGEN 9 mg/dL (7-20); CARBON DIOXIDE 30 mmol/L (22-30); CHLORIDE 106 mmol/L (98-107); GLUCOSE 106 mg/dL (75-110); POTASSIUM 4.1 mmol/L (3.6-5.0); TOTAL PROTEIN 8.6 g/dL (6.3-8.2)
--- NOTE | 2020-07-25 14:06 | RADIOLOGY REPORT (SQ) ---
EXAM DESCRIPTION: CT HEAD WITHOUT IMAGES COMPLETED DATE/TIME: 07/25/2020 12:48 pm REASON FOR STUDY: pain COMPARISON: None. TECHNIQUE: Axial images acquired through the brain without intravenous contrast. Images reviewed wi th bone, brain and subdural windows. Images stored on PACS. All CT scanners at this facility use dose modulation, iterative reconstruction, and/or weight based d osing when appropriate to reduce radiation dose to as low as reasonably achievable (ALARA). [facility]: Dose Right [facility]: CareDose [facility]: Dose Right [facility]: Teradose 4D [facility]: ClickFacts RADIATION DOSE: CT Rad equipment meets quality standard of care and radiation dose reduction techniq ues were employed. CTDIvol: 53.2 mGy. DLP: 1044 mGy-cm. mGy. LIMITATIONS: None. FINDINGS: VENTRICLES: Normal size and contour. CEREBRUM: No masses. No hemorrhage. No midline shift. No evidence for acute infarction. Normal gra y/white matter differentiation. No areas of low density in the white matter. CEREBELLUM: No masses. No hemorrhage. No alteration of density. No evidence for acute infarction. EXTRAAXIAL SPACES: No fluid collections. No masses. ORBITS AND GLOBE: No intra- or extraconal masses. Normal contour of globe without masses. CALVARIUM: No fracture. PARANASAL SINUSES: No fluid or mucosal thickening. SOFT TISSUES: No mass or hematoma. OTHER: No other significant finding. IMPRESSION: NO ACUTE INTRACRANIAL IMAGING FINDINGS. EVIDENCE OF ACUTE STROKE: NO. COMMENT: Quality ID # [id number]: Final reports with documentation of one or more dose reduction techniques (e.g., Automated exposure control, adjustment of the mA and/or kV according to patient size, use of iterative reconstruction technique) TECHNICAL DOCUMENTATION: JOB ID: [id number] [email or web address]- All Rights Reserved Reading location - IP/workstation name: [email or web address]
[2020-07-25 14:17] VITALS: BP 150/113
--- NOTE | 2020-07-25 14:18 | ER Document Report ---
ED General - General Chief Complaint: Headache Stated Complaint: BODY ACHES,HEADACHES Time Seen by Provider: 07/25/20 12:06 Primary Care Provider: CANDY GARCIA MD [Primary Care Provider] - Follow up as needed Mode of Arrival: Ambulatory Information source: Patient TRAVEL OUTSIDE OF THE [place] IN LAST 30 DAYS: No - HPI Notes: Patient presents with 3 days of headache. The pain is mainly on the right side of the head but does radiate all the way across the head. She states she is also been under some increased stress lately and that she did hit her head approximate 1 week ago on the left frontal area. She states she is had no vomiting. She had no significant cough cold or congestion. No sinus congestion. The headache is moderate. It is been every day for 3 days. It is worse with movement and better with rest. Is a throbbing sensation. - Related Data Allergies/Adverse Reactions: ciprofloxacin [From Cipro] Allergy (Mild, Verified 06/14/19 14:57) rash metoclopramide HCl [From Reglan] Allergy (Mild, Verified 06/14/19 14:57) Hives morphine [Morphine] Adverse Reaction (Mild, Verified 06/14/19 14:57) Hyperactivity prochlorperazine edisylate [From Compazine] Adverse Reaction (Mild, Verified 06/14/19 14:57) Past Medical History - General Information source: Patient - Social History Smoking Status: Never Smoker Frequency of alcohol use: None Drug Abuse: None Family History: CAD, Hypertension, Malignancy - Past Medical History Cardiac Medical History: Reports: Hx Hypercholesterolemia, Hx Hypertension, Hx Pulmonary Embolism Denies: Hx Coronary Artery Disease, Hx Heart Attack Pulmonary Medical History: Denies: Hx Asthma, Hx Bronchitis, Hx COPD, Hx Pneumonia Neurological Medical History: Reports: Hx Cerebrovascular Accident. Denies: Hx Seizures Renal/ Medical History: Reports: Hx Kidney Stones. Denies: Hx Peritoneal Dialysis GI Medical History: Reports: Hx Gastroesophageal Reflux Disease Musculoskeletal Medical History: Denies Hx Arthritis, Reports Hx Musculoskeletal Deformity, Reports Hx Musculoskeletal Trauma Psychiatric Medical History: Reports: Hx Anxiety Past Surgical History: Reports: Hx Cardiac Surgery - stents, Hx Section, Hx Cholecystectomy, Hx Hysterectomy, Hx Thyroid Surgery, Hx Vascular Surgery - Filter to prevent clots to the lung, Other - Chest tube - Immunizations Immunizations up to date: Yes Hx Diphtheria, Pertussis, Tetanus Vaccination: Yes Review of Systems - Review of Systems Constitutional: denies: Chills, Fever Cardiovascular: denies: Chest pain, Palpitations Respiratory: denies: Cough, Short of breath -: Yes All other systems reviewed and negative Physical Exam - Vital signs Vitals: Temp Pulse BP Pulse Ox 98.5 F 99 158/113 H 97 07/24/20 10:40 07/24/20 10:40 07/24/20 10:40 07/24/20 10:40 Interpretation: Hypertensive - General General appearance: Appears well, Alert - HEENT Head: Normocephalic, Atraumatic Eyes: Normal Pupils: PERRL - Respiratory Respiratory status: No respiratory distress Chest status: Nontender Breath sounds: Normal Chest palpation: Normal - Cardiovascular Rhythm: Regular Heart sounds: Normal auscultation Murmur: No - Abdominal Inspection: Normal Distension: No distension Bowel sounds: Normal Tenderness: Nontender Organomegaly: No organomegaly - Back Back: Normal, Nontender - Extremities General upper extremity: Normal inspection, Nontender, Normal color, Normal ROM, Normal temperature General lower extremity: Normal inspection, Nontender, Normal color, Normal ROM, Normal temperature, Normal weight bearing. No: May's sign - Neurological Neuro grossly intact: Yes Cognition: Normal Orientation: AAOx4 [place] Coma Scale Eye Opening: Spontaneous [place] Coma Scale Verbal: Oriented [place] Coma Scale Motor: Obeys Commands [place] Coma Scale Total: 15 Speech: Normal Cranial nerves: Normal Cerebellar coordination: Normal Motor strength normal: LUE, RUE, LLE, RLE Additional motor exam normals: Equal inside steward/stewardess. No: Pronator drift Sensory: Normal - Psychological Associated symptoms: Normal affect, Normal mood - Skin Skin Temperature: Warm Skin Moisture: Dry Skin Color: Normal Course - Re-evaluation Re-evalutation: 07/25/20 14:15 Patient presents with headache. Head CT is unremarkable. Exam also unremarkable with normal neurological exam. Most likely this is sequelae from the left forehead contusion that she received 1 week ago. - Vital Signs Vital signs: Temp Pulse Resp BP Pulse Ox 98.5 F 99 158/113 H 97 07/24/20 10:40 07/24/20 10:40 07/24/20 10:40 07/24/20 10:40 - Laboratory Results Result Diagrams: 07/25/20 11:08 07/25/20 11:08 Laboratory Results Interpreted: 07/25/20 07/25/20 11:08 11:08 Hct 35.5 L Total Protein 8.6 H Critical Laboratory Results Reviewed: No Critical Results - Radiology Results Critical Radiology Results Reviewed: No Critical Results Discharge - Discharge Clinical Impression: Forehead contusion Qualifiers: Encounter type: initial encounter Qualified Code(s): S00.83XA - Contusion of other part of head, initial encounter Headache Qualifiers: Headache type: unspecified Headache chronicity pattern: acute headache Intractability: intractable Qualified Code(s): R51.9 - Headache, unspecified Condition: Stable Disposition: HOME, SELF-CARE Instructions: Headache ([facility]), Oral Narcotic Medication ([facility]) Prescriptions: Clonidine HCl 0.3 mg PO TID 30 Days #90 tablet Hydrocodone/Acetaminophen [Carmel 5-325 mg Tablet] 1 tab PO Q6 PRN 3 Days #12 tablet PRN Reason: For Pain Forms: Elevated Blood Pressure, Return to Work Referrals: CANDY GARCIA MD [Primary Care Provider] - Follow up as needed
== END 2020-07-25 14:29 | disposition home or self-care (01) ==
LOC: ER 10:18
DX: S00.83XA Contusion of other part of head, initial encounter (principal); R51.9 Headache, unspecified; M79.10 Myalgia, unspecified site; X58.XXXA Exposure to other specified factors, initial encounter; E78.00 Pure hypercholesterolemia, unspecified; I10 Essential (primary) hypertension; Z88.6 Allergy status to analgesic agent; Z86.711 Personal history of pulmonary embolism
CPT/HCPCS: 36415; 70450; 80053; 85025; 99285